=== PATIENT | male | born 1990 | race Caucasian/White ===

== ENCOUNTER 2020-01-11 01:52 | Emergency (ER) | payer OTHER ==
[~2020-01-11] VITALS: Ht 177.8 cm; Wt 82.0 kg
[2020-01-11] MEDS ORDERED: KETOROLAC 30MG/ML VIAL IM SCH (03:00)
[2020-01-11] MEDS ORDERED: DIPHENHYDRAMINE 50MG/ML VIAL IM SCH (03:00)
[2020-01-11 03:47] VITALS: BP 135/80
[2020-01-11] MEDS ORDERED: PROCHLORPERAZINE 10MG/2ML VIAL IM SCH (04:00)
== END 2020-01-11 03:48 | disposition home or self-care (01) ==
LOC: ER 01:52
DX: G43.B0 Ophthalmoplegic migraine, not intractable (principal)
CPT/HCPCS: 96372; 99284; J0780; J1200; J1885

== ENCOUNTER 2021-05-26 22:01 | Emergency (ER) | payer SELFPAY | END 2021-05-26 23:16 | disposition left against medical advice (07) | LOC: ER 22:01 | DX: R51.9 Headache, unspecified (principal); Z53.21 Procedure and treatment not carried out due to patient leaving prior to being seen by health care provider ==

== ENCOUNTER 2023-03-01 12:44 | Emergency (ER) | payer SELFPAY ==
[~2023-03-01] VITALS: Ht 177.8 cm; Wt 82.0 kg
[2023-03-01 12:57] VITALS: O2SAT 99
[2023-03-01] MEDS ORDERED: ONDANSETRON 4MG ODT PO STA (13:41)
[2023-03-01] MEDS ORDERED: DICYCLOMINE 10 MG/5 ML ORAL SYR PO STA (13:41)
[2023-03-01] MEDS ORDERED: MAGNESIUM/ALUMINUM HYDROXIDE/SIMETHICONE 30ML UDC PO STA (13:41)
[2023-03-01 13:54] LABS: HEMATOCRIT. 47.4 % (42.0-52.0); MEAN CORPUSCULAR HEMOGLOBIN 31.5 pg (28.0-32.0); MEAN CORPUSCULAR HGB CONC 33.9 g/dL (31.0-37.0); MEAN PLATELET VOLUME 8.8 fl (7.4-10.4); PLATELET 227 x1000/uL (130-400); RED BLOOD CELL COUNT 5.09 mill/uL (4.7-6.1); RED CELL DISTRIBUTION WIDTH 13.5 % (11.6-14.6); WHITE BLOOD COUNT 7.5 x1000/uL (4.5-11.0)
[2023-03-01 14:03] LABS: DIFFERENTIAL COMMENT 1
[2023-03-01 15:12] LABS: PLATELET ESTIMATE NORMAL
[2023-03-01] MEDS ORDERED: ONDANSETRON 4MG ODT PO NR (17:30)
[2023-03-01] MEDS ORDERED: MAGNESIUM/ALUMINUM HYDROXIDE/SIMETHICONE 30ML UDC PO NR (17:30)
[2023-03-01] MEDS ORDERED: ONDANSETRON HCL 4MG/2ML INJ IV ONE (18:15)
[2023-03-01] MEDS ORDERED: SODIUM CHLORIDE 0.9% 1,000 ML IV ONE (18:15)
[2023-03-01 18:49] LABS: ALANINE AMINOTRANSFERASE 194 IU/L (10-49); ALBUMIN 5.2 g/dL (3.2-4.8); ASPARTATE AMINOTRANSFERASE 226 IU/L (<34); BILIRUBIN TOTAL 3.9 mg/dL (0.1-1.0); CALCIUM 10.6 mg/dL (8.7-10.4); CARBON DIOXIDE 16 mEq/L (21-32); CHLORIDE 103 mEq/L (98-107); GLUCOSE 108 mg/dL (70-105); POTASSIUM 3.8 mEq/L (3.5-5.1); PROTEIN TOTAL 8.5 g/dL (6.0-8.3); SODIUM 145 mEq/L (136-145); UREA NITROGEN BLOOD 9 mg/dL (9-23)
[2023-03-01] MEDS ORDERED: KETOROLAC 30MG/ML VIAL IV ONE (19:15)
[2023-03-01 19:30] VITALS: BP 142/83
[2023-03-01 20:33] LABS: ETHANOL BLOOD < 10 mg/dL (<10)
[2023-03-01] MEDS ORDERED: CHLORDIAZEPOXIDE 25MG CAPSULE PO ONE (20:45)
[2023-03-01] MEDS ORDERED: FAMO-135 MT (20:52)
[2023-03-01 21:19] VITALS: PULSE 75; RESP 18; TEMP 98.8
== END 2023-03-01 21:24 | disposition home or self-care (01) ==
LOC: ER 13:40
DX: K76.0 Fatty (change of) liver, not elsewhere classified (principal); F10.20 Alcohol dependence, uncomplicated; G43.909 Migraine, unspecified, not intractable, without status migrainosus; Y90.0 Blood alcohol level of less than 20 mg/100 ml
CPT/HCPCS: 80053; 80320; 83690; 85025; 36415; 74176; 76700; 96360; 99284; Q0162; J7030; Z7610 ×2; G0480

== ENCOUNTER 2023-09-29 21:05 | Emergency (ER) | payer SELFPAY ==
[~2023-09-29] VITALS: Ht 170.2 cm; Wt 79.0 kg
[~2023-09-29 21:05] MED LIST: FAMO-135 MT
[2023-09-29 21:22] VITALS: O2SAT 96
[2023-09-29] MEDS ORDERED: MAGNESIUM/ALUMINUM HYDROXIDE/SIMETHICONE 30ML UDC PO ONE (22:30)
[2023-09-29] MEDS: MAGNESIUM/ALUMINUM HYDROXIDE/SIMETHICONE 30ML UDC PO NR (23:00)
[2023-09-29 23:08] LABS: CLARITY URINE CLEAR (CLEAR); COLOR URINE ORANGE (YELLOW); GLUCOSE URINE NEGATIVE (NEGATIVE); KETONES URINE TRACE (NEGATIVE); LEUKOCYTE ESTERASE URINE 1+ (NEGATIVE); NITRITE URINE POSITIVE (NEGATIVE); OCCULT BLOOD URINE NEGATIVE (NEGATIVE); PH URINE 8.5 (4.5-8.0); PROTEIN URINE 1+ (NEGATIVE); SPECIFIC GRAVITY URINE 1.034 (1.005-1.030)
[2023-09-29 23:35] LABS: BASOPHILS % 0.7 % (0.0-2.0); EOSINOPHILS % 0.8 % (0.0-5.0); HEMATOCRIT. 46.5 % (42.0-52.0); HEMOGLOBIN. 15.8 g/dL (14.0-18.0); LYMPHOCYTES % 18.9 % (20.0-50.0); MEAN CORPUSCULAR HEMOGLOBIN 31.5 pg (28.0-32.0); MEAN CORPUSCULAR HGB CONC 34.1 g/dL (31.0-37.0); MEAN CORPUSCULAR VOLUME 92.4 fL (80.0-94.0); MEAN PLATELET VOLUME 8.8 fl (7.4-10.4); MONOCYTES % 10.3 % (2.0-8.0); NEUTROPHILS % 69.3 % (40.0-76.0); PLATELET 155 x1000/uL (130-400); RED BLOOD CELL COUNT 5.03 mill/uL (4.7-6.1); RED CELL DISTRIBUTION WIDTH 15.2 % (11.6-14.6); WHITE BLOOD COUNT 4.6 x1000/uL (4.5-11.0)
[2023-09-29 23:40] LABS: CHLORIDE 98 mEq/L (98-107); POTASSIUM 3.5 mEq/L (3.5-5.1); SODIUM 136 mEq/L (136-145)
[2023-09-29 23:42] LABS: CALCIUM 9.7 mg/dL (8.7-10.4); CARBON DIOXIDE 27 mEq/L (21-32)
[2023-09-29 23:47] LABS: CREATININE 0.8 mg/dL (0.6-1.3); GLUCOSE 112 mg/dL (70-105)
[2023-09-29 23:49] LABS: ALANINE AMINOTRANSFERASE 148 IU/L (10-49); ALBUMIN 4.5 g/dL (3.2-4.8); ASPARTATE AMINOTRANSFERASE 215 IU/L (<34); BILIRUBIN TOTAL 4.1 mg/dL (0.1-1.0); PROTEIN TOTAL 8.1 g/dL (6.0-8.3)
[2023-09-29 23:56] LABS: UREA NITROGEN BLOOD < 5 mg/dL (9-23)
[2023-09-30 00:52] LABS: RBC URINE NONE SEEN /hpf (0-2); WBC URINE 0-2 /hpf (0-2)
[2023-09-30 00:53] LABS: BACTERIA URINE TRACE; MUCUS URINE 4+ /lpf (NONE/TRACE); SQUAMOUS EPITHELIAL CELL URINE 1+ /lpf (RARE/1+)
[2023-09-30 02:22] VITALS: BP 151/93; PULSE 98; RESP 16; TEMP 98.6
[2023-09-30] MEDS ORDERED: ONDA4TAB50 MT (05:29)
[2023-09-30] MEDS ORDERED: PROT20 MT (05:29)
== END 2023-09-30 01:50 | disposition home or self-care (01) ==
LOC: ER 21:05
DX: R10.13 Epigastric pain (principal); K70.0 Alcoholic fatty liver; F10.20 Alcohol dependence, uncomplicated
CPT/HCPCS: 36415; 76705; 80053; 81003; 83605; 85025; 99284